=== PATIENT | male | born 1965 | race African-American/Black ===

== ENCOUNTER 2019-04-30 00:20 | Outpatient (CLI) | payer MEDICARE, MEDICAID, SELFPAY ==
[2019-04-28 16:33] VITALS: BMI 26.1
--- NOTE | 2019-04-30 07:34 | P.PNGI_ITS ---
Subjective Date/time seen: 04/30/19 07:34 This very pleasant gentleman is here for PEG tube removal And replacement. Preop diagnosis: Changing PEG tube. Postop diagnosis same. Procedure: The patient was brought to the endoscopy suite after an overnight fast. He mild the supine position the old percutaneous gastrostomy tube was removed with gentle traction. A 20 [place] percutaneous gastrostomy tube is reinserted through the same site. Gastric contents were aspirated to confirm placement of the percutaneous gastrostomy tube. The patient tolerated the procedure well without any Immediate complication. recommendation: Patient return to previous care facility. Objective Data Meds/Results Medications: Active Medications Generic Name Dose Route Start Last Admin Trade Name Freq PRN Reason Stop Dose Admin Lactated Ringer's 1,000 mls @ 150 mls/hr 04/30/19 07:30 Lr - Lactated Ringers Iv IV CONT .[id number] [facility] Lidocaine HCl 0.3 ml 04/30/19 07:29 Xylocaine 2% Local Inj INTRADERM ONCE PRN to numb area
--- NOTE | 2019-04-30 07:37 | P.HP_ITS ---
H&P: HPI History of Present Illness Chief complaint: Esophagel Dysphagia Narrative: Manas Pabon is a 54 year old male presents today for g tube replacement. Patient has been dependent on g tube feedings for unknown time. This was replaced endoscopically by Dr. Hurtado 08/14/2018 after his tube became dislodged. He is non verbal. HPI is obtained from EMR. Review of Systems Review of Systems: ROS unobtainable: unobtainable due to mental status PMFSH Past Medical History Medical History (Updated 04/30/19 @ 07:40 by Katlin Galarza, [employer] ADMINISTRATOR) Diabetes Gastrostomy tube dependent Gout History of alcohol abuse Hypertension Wernicke encephalopathy Meds Home Medications and Allergies Home Medications Medication Instructions Recorded Confirmed Type allopurinol 100 mg FEEDING TUBE DAILY 04/28/19 04/28/19 History alum-mag hydroxide-simeth [Mylanta 5 ml FEEDING TUBE QID PRN 04/28/19 04/28/19 History Maximum Strength] carboxymethylcellulose-glycern 1 drp OPHTHALMIC (EYE) QID 04/28/19 04/28/19 History [Refresh Optive] gabapentin 250 mg FEEDING TUBE TID 04/28/19 04/28/19 History glucagon 1 mg SUBCUT PRN PRN 04/28/19 04/28/19 History ibuprofen 600 mg FEEDING TUBE Q6H PRN 04/28/19 04/28/19 History insulin detemir U-100 [Levemir 10 unit SUBCUT HS 04/28/19 04/28/19 History U-100 Insulin] lactulose 20 g FEEDING TUBE TID 04/28/19 04/28/19 History metoclopramide HCl 10 mg FEEDING TUBE TID 04/28/19 04/28/19 History nut.tx.gluc intol,lf,soy-fiber See Rx Instructions .ROUTE .COMPLEX 04/28/19 04/28/19 History [Glucerna 1.5 Harshad] thiamine HCl (vitamin B1) 100 mg FEEDING TUBE EVERY OTHER DAY 04/28/19 04/28/19 History Allergies Allergy/AdvReac Type Severity Reaction Status Date / Time No Known Allergies Allergy Verified 04/28/19 16:13 Exam Const: General: comfortable, awake and other (non verbal) Nutritional Appearance: average body habitus and well nourished Limitations: altered mental status GI: GI Palp: Yes Soft to palpation and No Tenderness to palpation present (GI) Auscultation: normal bowel sounds Other: PEG tube site located in LUQ with gauze bumper in place and dated Assessment and Plan Assessment and plan (1) PEG tube malfunction: Code(s): K94.23 - Gastrostomy malfunction Status: Acute Assessment and Plan: Will replace 20 F PEG tube Clean with mild soap and water BID Okay to start tube feedings immediatly and discharge to nursing facility Monitor s/s of infection (2) Gastrostomy tube dependent: Code(s): Z93.1 - Gastrostomy status Status: Acute
--- NOTE | 2019-04-30 07:44 | SUR.PREOP ---
Addendum entered by Jerri England RN 04/30/19 14:53: Manas Pabon Male : 1965 Emr# [id number] 04/30/19 14:00 - Phase II Recovery Note by Jerri England RN Acct Num: [id number] : 1965 Patient Age: [id number] [phone] report called to [facility]. nurse shahla per lashay rn, sister luis called and updated that procedure was completed per lashay cottrell. 0830 pt transported via stretcher to Pre-op surgery for holding, A patient sitter will sit and attend to patient until ems arrives to transport to [facility]. 0950 pt. tranported via ems stretcher to [facility] via [facility], report given to ed per lashay cottrell disharge orders and peg-tube bookley sent to [facility] via ems. Initialized on 04/30/19 14:00 - END OF NOTE Original Note: pt transported to [facility] via stretcher from EMS for peg-removal and replacement. vital signs attempted and pt became combative-unable to do vital signs, pt is non-verbal and does not follow commands. he looks around smiling but starts to swing arms with attempts for vs. g-tube removed per dr. bob and replaced with a 20 ukrainian endovive, sterile 4x4s placed under flange, marking is at 4cm at skin. binder in place to protect tube. ems called for transport.
--- NOTE | 2019-04-30 14:00 | SUR.PHASEII ---
0800 report called to [facility]. nurse shahla per lashay rn, sister luis called and updated that procedure was completed per lashay cottrell. 0830 pt transported via stretcher to Pre-op surgery for holding until ems arrives to transport to [facility]. 0950 pt. tranported via ems stretcher to [facility] via [facility], report given to ed per lashay cottrell disharge orders and peg-tube bookley sent to [facility] via ems.
== END 2019-04-30 00:21 | disposition home or self-care (01) ==
PROVIDERS: Visit Provider Internal Medicine Gastroenterology
PROC: 0DJ08ZZ Inspection of Upper Intestinal Tract, Via Natural or Artificial Opening Endoscopic (ICD-10-PCS; CPT 43235; principal; 2019-04-30 09:00)
PROC: 0DH63UZ Insertion of Feeding Device into Stomach, Percutaneous Approach (ICD-10-PCS; CPT 43246; 2019-04-30 09:00)
DX: R13.10 Dysphagia, unspecified (principal); Z93.1 Gastrostomy status
CPT/HCPCS: 99213; G0463

== ENCOUNTER 2019-12-07 14:00 | Emergency (ER) | payer MEDICARE, MEDICAID, SELFPAY ==
[2019-12-07 13:55] VITALS: BP 57/36; PULSE 121; RESP 33; TEMP 37.2
--- NOTE | 2019-12-07 14:07 | ECG_ITS ---
Measurements Intervals [place] Rate: 111 P: 41 OK: 193 QRS: 8 QRSD: 101 T: 85 QT: 311 QTc: 424 Interpretive Statements SINUS TACHYCARDIA ATRIAL PREMATURE COMPLEXES POSSIBLE LEFT ATRIAL ENLARGEMENT DELAYED PRECORDIAL R/S TRANSITION BORDERLINE ST-T WAVE ABNORMALITY- DIFFUSE LEADS BASELINE ARTIFACT- V1-V2 ABNORMAL ECG Electronically Signed On 12-07-2019 16:44:49 CDT by Vinicio Rodrigues D.O.
[2019-12-07 14:13] VITALS: RESP 33
--- NOTE | 2019-12-07 14:15 | PC.NURSE ---
Pt condition changed at this time. Pt breathing stopped, HR slowed from 121 to 50s, unable to obtain pulse ox. Dr. Goldberg notified
[2019-12-07 14:20] VITALS: PULSE 34; RESP 0
--- NOTE | 2019-12-07 14:23 | PC.NURSE ---
Dr. Goldberg at bedside, pt HR showing 0 on the monitor. Pt not breathing at this time. unable to obtain pulse. Dr. Goldberg doing bedside ultrasound. No heart movement at this time. Time of 1429
--- NOTE | 2019-12-07 14:45 | PC.NURSE ---
YUE notified at this time. She is unsure of what custodial she will be using. She states she call back when she speaks with her family
--- NOTE | 2019-12-07 15:44 | PC.NURSE ---
MTS called at this time to get more information on the patient and states that he will notify POA about organ donation
--- NOTE | 2019-12-07 18:33 | ED.GENADULT ---
HPI - General Adult General Chief complaint: Altered Mental Status Stated complaint: UNRESPONSIVE Time Seen by Provider: 12/07/19 14:02 Source: EMS History of Present Illness HPI narrative: Patient is a 54 y/o male sent from [place] for altered mental status. Patient is reportedly non-verbal at baseline. He has a feeding tube. He was found by staff to have agonal respiration, less responsive than baseline approximately 1 hour ago. There is no known alleviating or exacerbating factor. Patient reportedly had a pulse ox in 80s. Patient's record indicates that patient is DNR and comfort care only. Patient is not able to provide any history due to unresponsiveness. Related Data Home Medications Medication Instructions Recorded Confirmed allopurinol 100 mg FEEDING TUBE DAILY 04/28/19 04/28/19 alum-mag hydroxide-simeth [Mylanta 5 ml FEEDING TUBE QID PRN 04/28/19 04/28/19 Maximum Strength] carboxymethylcellulose-glycern 1 drp OPHTHALMIC (EYE) QID 04/28/19 04/28/19 [Refresh Optive] gabapentin 250 mg FEEDING TUBE TID 04/28/19 04/28/19 glucagon 1 mg SUBCUT PRN PRN 04/28/19 04/28/19 ibuprofen 600 mg FEEDING TUBE Q6H PRN 04/28/19 04/28/19 insulin detemir U-100 [Levemir 10 unit SUBCUT HS 04/28/19 04/28/19 U-100 Insulin] lactulose 20 g FEEDING TUBE TID 04/28/19 04/28/19 metoclopramide HCl 10 mg FEEDING TUBE TID 04/28/19 04/28/19 nut.tx.gluc intol,lf,soy-fiber See Rx Instructions .ROUTE .COMPLEX 04/28/19 04/28/19 [Glucerna 1.5 Harshad] thiamine HCl (vitamin B1) 100 mg FEEDING TUBE EVERY OTHER DAY 04/28/19 04/28/19 Allergies Allergy/AdvReac Type Severity Reaction Status Date / Time No Known Allergies Allergy Verified 04/28/19 16:13 Review of Systems Review of Systems: ROS unobtainable: Yes unobtainable due to medical condition PMFSH Past Medical History Medical History Diabetes Gastrostomy tube dependent Gout History of alcohol abuse Hypertension Wernicke encephalopathy Exam Const: General: acute distress, in distress, ill appearing and patient obtunded HENMT: Head: normocephalic Ears: external ears normal General nose exam: Normal external nose present Eyes: General: appearance normal, both eyes and all related structures Conjunctivae: conjunctivae normal Neck: Neck: normal visual inspection and trachea midline Chest: Chest palpation & inspection: normal inspection of the chest and no tenderness Resp: Effort & Inspection: retractions, tachypneic and uses accessory muscles Cardio: Rate: tachycardic Rhythm: regular rhythm GI: GI Palp: No abdominal tenderness and Yes Soft to palpation Skin: General skin exam: turgor normal and pallor Neuro: General: patient obtunded Motor exam (neuro): Other motor observations present (unable to assess motor strength) Extrem: Other: legs atrophic, contracted Psych: Appearance: grossly abnormal Affect: Blunted affect present Course Reevaluation(s) Reevaluation #1: Asked by nurse to recheck patient because patient does not appear to be breathing. Patient is re-examined. He has no respiration, no pulse. Rhythm is consistent with PEA initially, which quickly changed to asystole. Bed side US shows no heart motion. Since patient is DNR, no CPR or other resuscitation is made. Patient is pronounced at 14:21. Previous plan for labs and Xray was cancelled. Date: 12/07/19 Vital Signs Vital signs: Vital Signs Temperature 37.2 C 12/07/19 13:55 Pulse Rate 121 H 12/07/19 13:55 Respiratory Rate 33 H 12/07/19 13:55 Blood Pressure 57/36 L 12/07/19 13:55 Temperature 37.2 C 12/07/19 13:55 Pulse Rate 34 L 12/07/19 14:20 Respiratory Rate 0 L 12/07/19 14:20 Blood Pressure 57/36 L 12/07/19 13:55 Medical Decision Making Vital Signs Vital Signs: Vital Signs Temperature 37.2 C 12/07/19 13:55 Pulse Rate 121 H 12/07/19 13:55 Respiratory Rate 33 H 12/07/19 13:55 Blood Pressure 57/36 L 12/07/19 13:
== END 2019-12-07 16:32 | disposition expired ==
PROVIDERS: Emergency Provider Emergency Medicine
DX: I46.9 Cardiac arrest, cause unspecified (principal); Z66 Do not resuscitate; Z93.1 Gastrostomy status; E11.9 Type 2 diabetes mellitus without complications; Z79.4 Long term (current) use of insulin; I10 Essential (primary) hypertension; E51.2 Wernicke's encephalopathy; R00.0 Tachycardia, unspecified; I49.1 Atrial premature depolarization; R94.31 Abnormal electrocardiogram [ECG] [EKG]
CPT/HCPCS: 93005; 99283